=== PATIENT | male | born 1960 | race Asian ===

== ENCOUNTER → 2016-11-17 | Outpatient (CLI) | payer BC ==
[~2016-11-17] MED LIST: HMLI SC; INSDGI SC; OMEGCAP2 PO; [UNRECOGNIZED DRUG - OTHER] PO
[2016-11-17 10:07] LABS: ALT/SGPT 36 U/L (12-78); AST/SGOT 14 U/L (15-37); BLOOD UREA NITROGEN 15 mg/dl (7-18); BUN/CREATININE RATIO 14.9 (10-20); CALCIUM 8.9 mg/dl (8.5-10.1); CARBON DIOXIDE 26 mmol/L (21-32); CHLORIDE 108 mmol/L (98-107); CHOLESTEROL 181 mg/dl (0-200); GLUCOSE 111 mg/dl (70-99); POTASSIUM 3.8 mmol/L (3.5-5.1); SODIUM 142 mmol/L (136-145); TRIGLYCERIDES 187 mg/dl (0-150); VERY LOW DENSITY LIPOPROT CALC 37 mg/dl
[2016-11-17 10:08] LABS: ALB/GLOB RATIO 1.3 (0.9-2); ALKALINE PHOSPHATASE 55 U/L (45-117); CHOLESTEROL/HDL RATIO 4.2; HDL CHOLESTEROL 43 mg/dl; LDL CHOLESTEROL CALCULATED 101 mg/dl
[2016-11-17 10:24] LABS: ESTIMATED AVERAGE GLUCOSE 128 mg/dl; HA1C FLAG Normal (Normal)
[2016-11-17 12:23] LABS: RATIO 7.7 mcg/mg (0-30.0)
== END | disposition home or self-care (01) ==
LOC: C.LAB1850 08:10
PROVIDERS: ATTEND Physician Assistant
DX: E11.9 Type 2 diabetes mellitus without complications (principal)

== ENCOUNTER → 2017-05-08 | Outpatient (CLI) | payer BC | END | disposition home or self-care (01) | LOC: C.LAB1850 15:26 | PROVIDERS: ATTEND Physician Assistant | DX: E11.9 Type 2 diabetes mellitus without complications (principal); E78.5 Hyperlipidemia, unspecified; R94.6 Abnormal results of thyroid function studies ==

== ENCOUNTER → 2017-06-18 | Outpatient (CLI) | payer BC ==
--- NOTE | 2017-06-21 09:02 | POLYSOMNOGRAPH REPORT ---
CLINICAL DATA: A 57-year-old male with BMI of 29.4, referred by myself with history of loud snoring and witnessed apneic episodes. On the evening of 06/18/2017, a home sleep apnea test was performed using a Ajubeo type 3 monitor. RECORDING RESULTS: Total recording time was 9.4 hours. The patient's monitoring time and estimated sleep time was 6.4 hours. RESPIRATORY DATA: Severe sleep apnea was documented. The DARLENE was 31.1. There were 98 obstructive apneic episodes and 108 hypopneic episodes recorded. The longest respiratory event was 50 seconds. OXIMETRY DATA: Nocturnal hypoxemia was seen. Oxygen hill was 74%. Mean saturation was 93%. Time below 89% was 12 minutes. HEART RATE DATA: Heart rates ranged from 60-72 beats per minute. SNORING DATA: Loud snoring was recorded throughout the night. VOLUNTEER SERVICES MANAGER'S COMMENTS: Snoring was recorded throughout the test. The patient had hypopneas and apneas occurring primarily while supine but also in the right position. IMPRESSION: Severe sleep apnea/hypopnea with respiratory event index of 31.1 with nocturnal hypoxemia. RECOMMENDATIONS: The patient may benefit from a repeat sleep study with CPAP or use of auto-CPAP. RACIELD
== END | disposition home or self-care (01) ==
LOC: C.NEUR 10:21
PROVIDERS: ATTEND Internal Medicine Pulmonary Disease
DX: G47.30 Sleep apnea, unspecified (principal)

== ENCOUNTER → 2017-07-16 | Outpatient (CLI) | payer BC ==
--- NOTE | 2017-07-17 07:38 | PAP/PSG TECHNICIAN REPORT ---
[facility] Encapsulator Polysomnogram Report Study name: None Report date: 07/17/2017 Study date: 07/16/2017 Referring Physician: Martin Mcneal M.D. Name: OSASHA E Interpreting Physician: Martin Mcneal M.D. Date of : 1960 Encapsulator: Carmelina Brooks, PSGT. Sex: Male Age: 57 StudyType: PSG Weight: 185 lbs Height: 57 years, Height 5' 6" BMI: 29.86 Medications: CALICUM D, HUMALOG, LANTUS, MULTI-VITS., OMEGA-3, VIT. -D3 5000 UNITS. Patient History 57 YEAR OLD MALE PRESENTS TO THE SLEEP LAB FOR A TITRATION SLEEP STUDY.PATIENT HAD A HOME SLEEP STUDY WITH A DARLENE OF 31.1. Parameters Monitored NPSG: E1-M2, E2-M1, Fp1-M2, Fp2-M1, F3-M2, F4-M2, F4-M1, C3-M2, C4-M2, C4-M1, O1-M2, O2-M2, O2-M1, T3-M2, T4-M1, P3-M2, P4-M1, CHIN1, CHIN2, HR, EKG, Legs, PFLOW, SNOR, FLOW, CFLOW, Tidal Volume, THOR, ABDO, SpO2, PLTH, CPRESS, ETCO2 Wave, ETCO2, pH Sleep Architecture Sleep Stages Time at Lights Off 8:44:17 PM STAGES Time (min.) TST (%) Time at Lights On 4:25:17 AM Wake 78.5 -- Total Recording Time (TRT) 466.00 min. N1 11.5 3 Total Sleep Period (TSP) 433.5 min. N2 288.0 75 Total Sleep Time (TST) 382.5min. N3 36.5 10 Awake Time 83.5 min. REM 46.5 12 Wake after Sleep Onset 72.5 min. Sleep Efficiency (SE) 83 % Sleep Onset Latency (GOLDY) 6.0 min. Number of Stage 1 Shifts None Awakenings 10 Stage Changes 35 Number of REM periods 2 REM 46.5 12 REM Latency 191.5 min. NREM 336.0 88 Body Position Analysis Supine Right Left Side Prone Vertical Total Sleep Time (min.) 460.8 0.0 0.0 0.00 0.0 0.2 Total Sleep Time (%) 100% 0% 0% 0 0% N/A% Total Sleep Time REM (min.) 46.5 0.0 0.0 None 0.0 0.0 Total Sleep Time NREM (min.) 336.0 0.0 0.0 None 0.0 0.0 Intermittent Wake (min.) 78.3 0.0 0.0 None 0.0 0.2 Total Sleep Period (%) 100% None None None None None Arousals Myoclonus (PLM) * Events Count Index Events Count Index Spontaneous 13 2 Events Awake (PLMW) 6 4.6 Respiratory 1 0.2 Events Asleep w/ Arousal (PLMA) 2 0.3 PLM 2 0 Events Asleep w/o Arousal (PLMS) 93 14.6 Snoring 1 0 Total Asleep 95 14.9 Total 17 3 Total 101 13 Respiratory Analysis * CA OA MA CH H RERA Total Count 7 1 0 0 7 0 15 Index 1.1 0.2 0.0 0 1.1 0 2.4 Mean Duration 14.6 10.4 0.0 0.00 12.7 0.0 13.5 Longest Duration 21.0 10.4 0.0 0.00 0.0 0.0 21.0 Respiratory Event Summary Total Supine ~Supine Right Left Prone REM NREM Apneas Count 8 8 N/A N/A N/A N/A 2 6 Index 1.3 1 N/A N/A N/A N/A 3 1 Hypopneas (4% Desat) Count 7 7 N/A N/A N/A N/A 0 7 Index 1.1 1.1 N/A N/A N/A N/A 0.0 1.3 Apneas & All Hypopneas Count 15 15 N/A N/A N/A N/A 2 13 Index 2.4 2 N/A N/A N/A N/A 2.6 2.3 Respiratory Events (Health/Safety Job Titles+All Hyp+RERA) Count 15 15 N/A N/A N/A N/A 2 13 Index 2.4 2 N/A N/A N/A N/A 2.6 2.3 Respiratory Related Arousal Count 1 15 N/A N/A N/A N/A 0 1 Index 0.2 0 N/A N/A N/A N/A 0 0 Snoring Analysis Supine Right Left Prone REM NREM Total Snore duration 15.4 min Snores count 641 N/A N/A N/A 1 640 641 Snore mean duration 1.4 Sec Snores index 101 N/A N/A N/A 1.3 114.3 100.5 TST with snoring (%) 4.0% Desaturation Event Summary: Minimum %SpO2 Event Count Mean/Min/Max Duration(sec.) Desaturation Index % Time In Bed > 90 31 23.1 / 9.0 / 56.8 4.1 99.1 86 - 90 0 N/A 0.0 0.9 81 - 85 0 N/A 0.0 0.0 76 - 80 0 N/A 0.0 0.0 71 - 75 0 N/A 0.0 0.0 66 - 70 0 N/A 0.0 0.0 61 - 65 0 N/A 0.0 0.0 56 - 60 0 N/A 0.0 0.0 51 - 55 0 N/A 0.0 0.0 < 50 0 N/A 0.0 0.0 Total REM NREM Awake <50% 0.0 min. 0.0 min. 0.0 min. 0.0 min. 51 - 60% 0.0 min. 0.0 min. 0.0 min. 0.0 min. 61 - 70% 0.0 min. 0.0 min. 0.0 min. 0.0 min. 71 - 80% 0.0 min. 0.0 min. 0.0 min. 0.0 min. 81 - 90% 3.9 min. 0.1 min. 2.7 min. 1.2 min. 91 - 100% 450.3 min. 46.4 min. 332.2 min. 71.8 min. Average 94 96 94 94 Minimum SpO2 86 89 86 86 Desaturation Event Index 4.0 5.2 4.8 0.0 # Desat. Events below 89% 4 N/A 4 N/A Time(%) with Saturation below 89% 0.2 0.0 0.2 0.1 Time(min.) with Saturation below 89% 1.1 0.0 0.8 0.3 Heart Rate Analysis End Tidal CO2 Analysis Min (bpm) Max (bpm) Average (bpm) TSP (mins) % of TSP Awake 65 97 78 Above 55 mmHg 0.0 0.0 NREM 66 91 75 50-55 mmHg 0.0 0.0 REM 71 88 76 45-50 mmHg 382.5 100.0 Overall 66 91 75 40-45 mmHg 0.0 0.0 35-40 mmHg 0.0 0.0 30-35 mmHg 0.0 0.0 Average ETCO2 0.0 Supplemental O2 Values Minimum O2 level: None Value Start Time End Time Encapsulator Comments PAP Study: slept in the supine positions. No cardiac arrhythmia or PLM's noted. No bruxism noted. CPAP was initiated at +4 CMH2O and up-titrated to an optimal level of +10 CMH2O, which nearly eliminated all respiratory events and snoring. A standard Res TalentSky Mirage FX, was used during titration awoke to use the restroom zero times during the night. stated, The final report will be interpreted and signed by a sleep physician. The completed physician report will then be placed in the patient medical record. Patient slept supine the entire study. He tolerated C-pap well. Therapy Event: Therapy (cm H20) 0 4 5 6 8 10 Total Time at Pressure (min.) 0.3 22.7 23.1 50.2 287.6 77.1 TST at Pressure (min.) 0.0 10.5 23.1 50.2 243.1 55.6 # Periods 1 1 1 1 1 1 Sleep Onset (min.) N/A 5.7 0.0 0.0 0.0 0.0 REM Onset (min.) N/A N/A N/A N/A 101.2 N/A Sleep Efficiency % 0 46 100 100 84 72 Wakefulness (%) 100.0 53.9 0.0 0.0 15.5 27.9 Wakefulness (min.) 0.3 12.2 0.0 0.0 44.5 21.5 NREM 1 (%) 0.0 26.4 0.0 0.0 1.9 0.0 NREM 1 (min.) 0.0 6.0 0.0 0.0 5.5 0.0 NREM 2 (%) 0.0 19.7 100.0 52.2 62.1 72.1 NREM 2 (min.) 0.0 4.5 23.1 26.2 178.6 55.6 NREM 3 (%) 0.0 0.0 0.0 47.8 4.3 0.0 NREM 3 (min.) 0.0 0.0 0.0 24.0 12.5 0.0 REM (%) 0.0 0.0 0.0 0.0 16.2 0.0 REM (min.) 0.0 0.0 0.0 0.0 46.5 0.0 # Arousals N/A 1 0 3 11 2 Arousal Index N/A 5.7 0.0 3.6 2.7 2.2 # Snore N/A 18 280 320 10 13 Snore Index N/A 103.2 726.8 382.2 2.5 14.0 AHI N/A 22.9 0.0 7.2 1.2 0.0 AHI Supine N/A 22.9 0.0 7.2 1.2 0.0 AHI Non-Supine N/A N/A N/A N/A N/A N/A NREM AHI N/A 22.9 0.0 7.2 0.9 0.0 REM AHI N/A N/A N/A N/A 2.6 N/A RDI N/A 22.9 0.0 7.2 1.2 0.0 # Obstructive N/A 0 0 1 0 0 # Central Ap N/A 0 0 3 4 0 # Mixed N/A 0 0 0 0 0 # Hypopneas N/A 4 0 2 1 0 RERAS N/A 0 0 0 0 0 Total Respiratory Events N/A 4 0 6 5 0 Time Below SpO2 89.00% (min.) 0.0 0.5 0.2 0.1 0.0 0.0 Mean NREM SpO2 (%) N/A 93 93 93 94 95 Mean REM SpO2 (%) N/A N/A N/A N/A 96 N/A Mean Sleep SpO2 (%) N/A 93 93 93 94 95 Min NREM SpO2 (%) N/A 87 86 88 90 93 Min REM SpO2 (%) N/A N/A N/A N/A 89 N/A Position Supine (min.) 0.0 10.5 23.1 50.2 243.1 55.6 Position Non-supine (min.) 0.0 0.0 0.0 0.0 0.0 0.0 LM Index Sleep N/A 57.3 2.6 2.4 19.0 5.4 LM Index NREM N/A 57.3 2.6 2.4 22.3 5.4 LM Index REM N/A N/A N/A N/A 5.2 N/A Mean Heart Rate (bpm) N/A 77 76 77 76 70 Min Heart Rate (bpm) N/A 70 72 73 68 66
--- NOTE | 2017-07-18 22:44 | POLYSOMNOGRAPH REPORT ---
CLINICAL DATA: A 57-year-old male with BMI of 29.9, referred by myself for a CPAP titration study. He had a home sleep apnea test which showed severe sleep apnea with an DARLENE of 31. SLEEP ARCHITECTURE: Total sleep period was 433.5 minutes. Total sleep time was 382.5 minutes divided between 336 minutes of non-REM sleep and 46.5 minutes of REM sleep. Sleep onset latency was 6 minutes. REM latency was 191.5 minutes. Sleep efficiency was 83%. Wake after sleep onset was 72.5 minutes. Sleep consisted of stage N1 3%, stage N2 75%, stage N3 10% and REM 12%. AROUSAL DATA: Seventeen arousals recorded for an index of 3 per hour. PERIODIC LIMB MOVEMENT DATA: Ninety-five limb movements during sleep were noted for an index of 14.9 per hour with arousal index of 0.3 per hour. RESPIRATORY DATA: The AHI was 2.4. There were 7 central and 1 obstructive apneic episodes. The longest duration of apnea was 21 seconds. There were 7 hypopneic episodes with the mean duration of 12.7 seconds. OXIMETRY DATA: No significant hypoxemia was seen. Oxygen hill was 86% during non-REM sleep. Mean saturation was 94%. ELECTROCARDIOGRAM: Heart rates ranged from 66-91 beats per minute. No arrhythmias were noted. AIRCRAFT AVIONICS TECHNICIAN'S COMMENTS AND TREATMENT SUMMARY: The patient slept supine. He used the standard ResMed Mirage FX mask. He was titrated up to his final pressure setting of 10 cm water pressure. At this final pressure setting, he slept for 55.6 minutes with an AHI of 0. He seemed to tolerate the CPAP well. IMPRESSION: Severe sleep apnea/hypopnea, corrected with CPAP 10 cm of water pressure, standard ResMed Mirage FX mask. RECOMMENDATIONS: The patient should be seen back in the clinic to be started on CPAP with followup in 90 days to document efficacy and compliance. DENNIS
== END | disposition home or self-care (01) ==
LOC: C.NEUR 20:00
PROVIDERS: ATTEND Internal Medicine Pulmonary Disease
DX: R05 Cough (principal); G47.30 Sleep apnea, unspecified

== ENCOUNTER → 2017-11-06 | Outpatient (CLI) | payer BC ==
[2017-11-06 15:40] LABS: BASO % 0.5 %; BASO ABS # 0.03 K/uL (0-0.2); EOS % 3.1 %; EOS ABS # 0.19 K/uL (0-0.5); HEMATOCRIT 42.3 % (42-52); HEMOGLOBIN 15.1 g/dL (14.0-18.0); IG# 0.02 K/uL (0.00-0.02); LYMPH % 33.8 %; MEAN CELL VOLUME 84.8 fL (80-100); MEAN CORPUSCULAR HEMOGLOBIN 30.3 pg (25-34); MEAN CORPUSCULAR HGB CONC 35.7 g/dl (32-36); MEAN PLATELET VOLUME 9.8 fL (7.4-10.4); MONO % 4.7 %; MONO ABS # 0.29 K/uL (0.11-0.59); NEUT % 57.6 %; NEUT ABS # 3.58 K/uL (1.4-6.5); PLATELET COUNT 194 K/uL (130-400); RED CELL DISTRIBUTION WIDTH CV 13.2 % (11.5-14.5); RED CELL DISTRIBUTION WIDTH SD 39.9 fL (36.4-46.3); WHITE BLOOD COUNT 6.21 K/uL (4.8-10.8)
[2017-11-06 16:00] LABS: CREATININE RANDOM URINE 43.6 mg/dl
[2017-11-06 16:03] LABS: ALT/SGPT 34 U/L (12-78); BLOOD UREA NITROGEN 17 mg/dl (7-18); CARBON DIOXIDE 26 mmol/L (21-32); CHOLESTEROL 197 mg/dl (0-200); GLUCOSE 161 mg/dl (70-99); POTASSIUM 3.8 mmol/L (3.5-5.1); SODIUM 137 mmol/L (136-145)
[2017-11-06 16:08] LABS: ALKALINE PHOSPHATASE 50 U/L (45-117); AST/SGOT 12 U/L (15-37); LDL CHOLESTEROL CALCULATED 108 mg/dl; TOTAL PROTEIN 7.1 gm/dl (6.4-8.2)
[2017-11-07 06:53] LABS: HEMOGLOBIN A1C 5.8 % (4.5-5.6)
== END | disposition home or self-care (01) ==
LOC: C.LAB1850 14:46
PROVIDERS: ATTEND Physician Assistant
DX: E11.9 Type 2 diabetes mellitus without complications (principal); Z12.5 Encounter for screening for malignant neoplasm of prostate; Z79.4 Long term (current) use of insulin

== ENCOUNTER 2023-10-30 01:21 | Observation (INO) ==
[2023-10-30 02:20] LABS: Anion Gap 11 (3-11); BUN Creatinine Ratio 23.3 (10-20); Bilirubin,Total 0.9 mg/dl (0.2-1.0); Blood Urea Nitrogen 21 mg/dl (6-23); Calcium 9.4 mg/dl (8.6-10.3); Carbon Dioxide 26 mmol/L (21-32); Chloride 102 mmol/L (98-107); Creatinine Clr Calc Pharmacy 88.8 ml/min; Est GFR (African American) 104.2 ml/min; Est GFR (Non-African American) 89.9 ml/min; Glucose 88 mg/dl (70-99(Fasting)); Potassium 2.9 mmol/L (3.5-5.1); Sodium 139 mmol/L (136-145)
[2023-10-30 02:21] LABS: Alanine Aminotransferase 32 U/L (7-52); Albumin Level 4.7 gm/dl (3.4-5.0); Alkaline Phosphatase 53 U/L (34-104); Aspartate Aminotransferase 20 U/L (13-39); Globulin 2.4 gm/dl (2.5-4.0); Total Protein 7.1 gm/dl (6.0-8.3)
[2023-10-30 02:32] LABS: Basophils # (auto) 0.05 K/uL (0.00-0.20); Basophils % (auto) 0.4 %; Eosinophils # (auto) 0.08 K/uL (0.00-0.50); Eosinophils % (auto) 0.6 %; Hematocrit (blood only) 43.9 % (42.0-52.0); Immature Granulocytes # (auto) 0.08 K/uL (0.01-0.20); Immature Granulocytes % (auto) 0.6 %; Lymphocytes # (auto) 1.84 K/uL (1.20-3.40); Lymphocytes % (auto) 14.8 %; Mean Corpuscular Hemoglobin 29.1 pg (25.0-34.0); Mean Corpuscular Hgb Conc 34.2 g/dL (32.0-36.0); Mean Corpuscular Volume 85.2 fL (80.0-100.0); Mean Platelet Volume 10.2 fL (9.4-12.4); Monocytes # (auto) 0.66 K/uL (0.11-0.59); Monocytes % (auto) 5.3 %; Neutrophils # (auto) 9.74 K/uL (1.40-6.50); Neutrophils % (auto) 78.3 %; Platelet Count 212 K/uL (130-400); RDW Coefficient of Variation 12.4 % (11.5-14.5); RDW Standard Deviation 38.2 fL (36.4-46.3); Red Blood Count 5.15 M/uL (4.70-6.10); White Blood Count 12.45 K/ul (4.8-10.8)
[2023-10-30] MEDS: SODIUM CHLORIDE 0.9% 1,000 ML IV SCH (02:48)
[2023-10-30 02:51] LABS: Adenovirus PCR Not Detected (NotDetected); Bordetella parapertussis PCR Not Detected (NotDetected); Bordetella pertussis PCR Not Detected (NotDetected); Chlamydia pneumoniae PCR Not Detected (NotDetected); Coronavirus 229E PCR Not Detected (NotDetected); Coronavirus CoV-2 (COVID19)PCR Not Detected (NotDetected); Coronavirus HKU1 PCR Not Detected (NotDetected); Coronavirus NL63 PCR Not Detected (NotDetected); Coronavirus OC43PCR Not Detected (NotDetected); Human Metapneumovirus PCR Not Detected (NotDetected); Influenza A PCR Not Detected (NotDetected); Influenza B PCR Not Detected (NotDetected); Mycoplasma pneumoniae PCR Not Detected (NotDetected); Parainfluenza Virus 1 PCR Not Detected (NotDetected); Parainfluenza Virus 2 PCR Not Detected (NotDetected); Parainfluenza Virus 3 PCR Not Detected (NotDetected); Parainfluenza Virus 4 PCR Not Detected (NotDetected); Respiratory Syncytial VirusPCR Not Detected (NotDetected); Rhinovirus/Enterovirus PCR Not Detected (NotDetected)
[2023-10-30] MEDS: diazePAM 5 MG/ML 10ML VIAL IV STA ×2 (02:54→02:59)
[2023-10-30 02:55] LABS: Troponin I High Sensitivity < 2.3 pg/ml (0-20)
[2023-10-30] MEDS: ONDANSETRON INJ 2 MG/ML 2 ML VIAL IV STA (02:59)
--- NOTE | 2023-10-30 03:57 | CT Scan Report ---
Exam(s): CT HEAD Without Contrast EXAM: CT Head Without Intravenous Contrast CLINICAL HISTORY: Reason for exam: Dizziness. TECHNIQUE: Axial computed tomography images of the head/brain without intravenous contrast. Automated exposure control was utilized for the study. A dose lowering technique was utilized adhering to the principles of ALARA. COMPARISON: Comparison made to prior brain MRI from September 04, 2023. FINDINGS: Brain: Unremarkable. No hemorrhage. No significant white matter disease. No edema. Ventricles: Unremarkable. No ventriculomegaly. Bones/joints: Unremarkable. No acute fracture. Soft tissues: Bilateral lens replacements. Sinuses: Unremarkable as visualized. No acute sinusitis. Mastoid air cells: Unremarkable as visualized. No mastoid effusion. IMPRESSION: No evidence of acute intracranial pathology. Electronically signed by: Samantha Glover MD 10/30/23 03:56 AM
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
[2023-10-30] MEDS: MECLIZINE HCL 25 MG TAB PO STA (06:05)
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
[2023-10-30] MEDS ORDERED: GLUCAGON FOR INJ 1 MG VIAL SQ PRN (07:32)
[2023-10-30] MEDS ORDERED: GLUCOSE 40% GEL 15 GM TUBE PO PRN (07:32)
[2023-10-30] MEDS ORDERED: DEXTROSE 50% 50 ML SYRINGE IV PRN (07:32)
[2023-10-30] MEDS ORDERED: ACETAMINOPHEN 325 MG TAB PO PRN (07:32)
[2023-10-30] MEDS ORDERED: ONDANSETRON INJ 2 MG/ML 2 ML VIAL IV PRN (07:32)
[2023-10-30] MEDS ORDERED: POLYETHYLENE (MIRALAX) 17 GM PACK PO PRN (07:32)
[2023-10-30] MEDS ORDERED: CARBOHYDRATES FOR HYPOGLYCEMIA PO PRN (07:32)
[2023-10-30] MEDS ORDERED: GLUCOSE 10 TAB/TUBE PO PRN (07:32)
[2023-10-30 07:59] LABS: Magnesium 2.2 mg/dl (1.7-2.4)
[2023-10-30] MEDS: MECLIZINE HCL 25 MG TAB PO SCH (09:30)
[2023-10-30] MEDS: MAGNESIUM SULFATE / D5W 1 GM/100 ML BAG IV SCH (09:30)
[2023-10-30] MEDS: LANTUS PER UNIT CHARGE SQ SCH (09:30)
[2023-10-30] MEDS: INSULIN ASPART PER UNIT CHARGE SC SCH (09:33)
[2023-10-30] MEDS: POTASSIUM CHLORIDE CRTAB 20 MEQ TABCR PO SCH (09:37)
--- NOTE | 2023-10-30 13:06 | Electrocardiogram Report ---
Test Reason : Blood Pressure : / mmHG Vent. Rate : 076 BPM Atrial Rate : 076 BPM P-R Int : 164 ms QRS Dur : 126 ms QT Int : 426 ms P-R-T Axes : 041 -44 033 degrees QTc Int : 479 ms Normal sinus rhythm Left axis deviation Non-specific intra-ventricular conduction block Nonspecific T wave abnormality Abnormal ECG When compared with ECG of 04-MAR-2015 14:02, Questionable change in QRS duration Confirmed by Johnie Higgins ([id number]) on 10/30/2023 1:06:00 PM Referred By: REFERRED SELF Confirmed By:Johnie Higgins
[2023-10-30 13:30] LABS: BUN Creatinine Ratio 18.9 (10-20); Calcium 9.2 mg/dl (8.6-10.3); Creatinine Clr Calc Pharmacy 83.6 ml/min; Est GFR (African American) 97.7 ml/min; Est GFR (Non-African American) 84.3 ml/min; Potassium 4.7 mmol/L (3.5-5.1)
--- NOTE | 2023-10-30 19:18 | Discharge Summary ---
Date of Service October 30, 2023 Admission HPI Per Admitting Provider Jeison Burton is a pleasant 63yo male with history of DM and HLP presenting with vertigo. Patient was in his usual state of health until yesterday afternoon when he developed some episodic vertigo - described as the room spinning. His vertigo persisted throughout the day and became more persistent. Around 2200 the vertigo was constant and fairly severe. He developed nausea and had 3 episodes of vomiting. Dizziness worse with movement and turning his head. No head trauma or recent URI illness. No tinnitus. He has bilateral sensorineural hearing loss at baseline and has hearing aides at home. No chest pain, palpitations, cough or SOB. No numbness, tingling or weakness. In the ER the patient was given Valium with brief improvement in symptoms. He reports that his symptoms have since returned. He is having difficulty opening his eyes. Still with some nausea. ER Course: NSS x 1L Zofran 4mg IV Valium 2mg IV Discharge Data Allergies Allergy/AdvReac Type Severity Reaction Status Date / Time No Known Allergies Allergy Verified 10/30/23 02:13 Consultations 10/30/23 04:47 ED Decision to Admit Stat Ordered Studies 10/30/23 02:16 CT head/brain wo con Stat Hospital Course (1) Vertigo: Suspect positional vertigo vs vestibular neuritis - positional vertigo, improved slightly with Valium. No further neurologic deficits. HINTS exam with some resting nystagmus otherwise is not suggestive of central cause. -Observation to medical -Scheduled Meclizine 25mg po TID -Zofran PRN -PT/OT evaluation (2) Diabetes mellitus with insulin therapy: Chronic. Well controlled with last [id number]=2.7 on 08/20/23. Patient takes Lantus 45u daily and novolog with meals. -Lantus 15u BID -ISS -Goal blood sugar 110 - 140 (3) Severe sleep apnea: Chronic. Patient is compliant with his CPAP at home. -Continue CPAP [id number] qHS (4) Hypokalemia: K=2.9 -Check Mg -Potassium 80mEq x 1 dose now -Repeat chemistry Discharge Plan Discharge Items Patient Disposition: Home - Self-Care Reason For Visit: VERTIGO Discharge Diagnosis: vertigo Activity: Resume your previous activity Non-emergency contact: Primary Care Provider Call non-emergency contact if: you have any medication questions Follow-up/Referrals: Martin Mcneal MD [Primary Care Provider] - Diet: Carb Consistent or DM2 Addtl Attending Provider Instructions: Vertigo is a sensation of spinning or dizziness, often due to inner ear problems. Vertigo can stem from various issues, including inner ear infections , benign positional vertigo (BPPV), Meniere's disease, or even migraines. In your case, given your history and physical exam by Dr. Savage, as well as your improvement, negative CT scan, I do not feel a stroke is the cause of your dizzinesswhich is our main concern. I expect your symptoms should continue to resolve over the next few days. If symptoms return or worsen, please come back to the hospital and we can do further studies. Depending on the time of day, you may also call your Ears nose and throat doctor, if your symptoms return. However, given your improvement, I anticipate that you will continue to improve. I will recommend to take it easy for the next few days as you contiue to recover. Adn I sent over meclizine for a few more days as needed for dizziness. We advise caution when standing or changing positions to avoid falls. Also, we recommend avoiding activities that worsen symptoms like driving or operating heavy machinery. We encourage rest during severe episodes, staying hydrated, and avoiding triggers like caffeine, alcohol, or certain foods. Please seek immediate medical attention, such as severe headaches, sudden hearing loss, or difficulty speaking or walking. Recommend followup in 1-2 weeks with PCP. Pending Studies at Discharge: No Stand-Alone Forms: [facility], Smoking Cessation Medications and DC Order Prescriptions: New meclizine 25 mg Tablet 25 mg PO TID PRN (Reason: dizziness) Qty: 6 0RF Continued (DME) pen needle, diabetic [BD Ultra-Fine Marilee Pen Needle] 32 gauge x 5/32" needle See Dose Instructions .ROUTE .MEDSUPPLY Qty: 200 11RF Dose Instruction: As directed Rx Instructions: Use five times daily insulin glargine [Lantus Solostar U-100 Insulin] 100 unit/mL (3 mL) insulin pen 50 unit subcut HS Qty: 45 3RF (DME) Dexcom G7 Sensor Device See Rx Instructions .Route Qty: 9 3RF Rx Instructions: change sensor Q10D multivitamin [Daily Multi-Vitamin] tablet 1 tab PO DAILY Qty: 30 0RF (DME) OneTouch Ultra Test Strip See Rx Instructions .ROUTE .MEDSUPPLY Rx Instructions: Test blood sugar once daily PRN (DME) lancets [OneTouch UltraSoft Lancets] Misc See Rx Instructions .ROUTE .MEDSUPPLY Rx Instructions: Test blood sugar once daily PRN calcium carbonate-vitamin D3 600 mg-5 mcg (200 unit) Tablet 1 tab PO DAILY omega-3 fatty acids 1,000 mg Capsule 1,000 mg PO DAILY insulin lispro [Humalog KwikPen Insulin] 100 unit/mL insulin pen 0 sliding scale dose SQ TIDM MDD 120 UNIT/DAILY Rx Instructions: 120 units subcut inject daily with meals up to 120 units daily; Discharge Orders: Discharge Order (Routine); Ordered 10/30/23 Ordered By: Merlin Duron Admission Data Admit Date/Time: 10/30/23 04:55 Attending Provider: Leigh Savage Admit Provider: Leigh Savage Primary Care Provider: Martin Mcneal Other Providers: Leigh Savage Coding Diagnoses Vertigo R42 Diabetes mellitus with insulin therapy E11.9; Z79.4 Severe sleep apnea G47.30 Hypokalemia E87.6
== END 2023-10-30 19:32 | disposition home or self-care (01) ==
LOC: SUATTDRO → ED 01:21 → 3N 01:21